=== PATIENT | male | born 1960 | race Caucasian/White ===

== ENCOUNTER 2016-09-10 00:04 | Emergency (ER) | payer MEDICARE, MEDICAID ==
[~2016-09-10] VITALS: Ht 162.6 cm; Wt 49.0 kg
[2016-09-10 00:11] VITALS: BP 121/83
== END 2016-09-10 01:40 | disposition home or self-care (01) ==
LOC: ER 00:09
DX: J02.9 Acute pharyngitis, unspecified (principal)

== ENCOUNTER 2016-09-13 17:04 | Emergency (ER) | payer MEDICARE, MEDICAID ==
[~2016-09-13] VITALS: Ht 177.8 cm; Wt 77.1 kg
[2016-09-13] MEDS ORDERED: HYDROcodone-ACET 10/325MG TAB PO ONE (21:15)
[2016-09-13 21:55] VITALS: BP 130/84
== END 2016-09-13 21:56 | disposition home or self-care (01) ==
LOC: ER 17:12
DX: M25.572 Pain in left ankle and joints of left foot (principal); M81.0 Age-related osteoporosis without current pathological fracture; G80.9 Cerebral palsy, unspecified; R62.59 Other lack of expected normal physiological development in childhood

== ENCOUNTER 2016-12-03 02:05 | Emergency (ER) | payer MEDICARE, MEDICAID ==
[~2016-12-03] VITALS: Ht 162.6 cm; Wt 59.4 kg
[2016-12-03 04:34] VITALS: BP 122/60
== END 2016-12-03 04:37 | disposition home or self-care (01) ==
LOC: ER 02:05
DX: J02.9 Acute pharyngitis, unspecified (principal)